=== PATIENT | male | born 1980 | race Caucasian/White ===

== ENCOUNTER 2018-12-10 14:00 | Emergency (ER) | payer MEDICAID ==
[2018-12-10] MEDS: BACITRACIN 0.9 GM OINT TOP (15:05)
[2018-12-10] MEDS: LIDOCAINE 1% (MDV) 20 ML INJ SC (15:05)
== END 2018-12-10 15:46 | disposition home or self-care (01) ==
LOC: FTE 14:00
DX: L60.0 Ingrowing nail (principal)
CPT/HCPCS: 11765; 99283-25